=== PATIENT | male | born 1980 | race Caucasian/White ===

== ENCOUNTER 2018-10-21 19:24 | Emergency (ER) | payer OTHER ==
[2018-10-21] MEDS ORDERED: Morphine 4 MG/ML VIAL ONE (20:17)
[2018-10-21 20:28] LABS: #Basophils 0.1 thou/uL (0.0-0.2); #Eosinphils 0.3 thou/uL (0.0-0.7); #Lymphocytes 2.7 thou/uL (1.20-3.40); #Neutrophils 6.7 thou/uL (1.40-6.50); %Basophils 0.9 % (0.0-1.0); %Eosinophils 3.2 % (0.0-10.0); %Lymphocytes 24.9 % (21.0-51.0); %Monocytes 8.9 % (0.0-10.0); %Neutrophils 62.2 % (42.0-75.0); Bilirubin Negative (Negative); Blood, Urine Negative (Negative); Clarity Clear (Clear); Glucose, Urine (Dipstick) Negative (Negative); Hemoglobin 14.5 g/dL (14.0-18.0); Leukocyte Negative (Negative); Mean Corpuscular HGB CONC 34.4 g/dL (32.0-36.0); Mean Corpuscular Volume 84.5 fL (78.0-98.0); Mean Platelet Volume 7.9 fL (7.4-10.4); Nitrite Negative (Negative); Platelet Count 322 thou/uL (130-400); Protein, Urine (Dipstick) Negative (Neg-Trace); Red Blood Cell (RBC) Count 4.98 mill/uL (4.70-6.10); Specific Gravity, Urine 1.015 (1.005-1.030); Urobilinogen 0.2 mg/dL (0.2-1.0); White Blood Cell (WBC) Count 10.8 thou/uL (4.8-10.8)
[2018-10-21 20:42] LABS: ALT (SGPT) 15 U/L (8-55); AST (SGOT) 17 U/L (5-34); Albumin 4.3 g/dL (3.5-5.0); Alkaline Phosphatase 77 U/L (40-150); Anion Gap 14 mmol/L (10-20); BUN (Urea Nitrogen) 9 mg/dL (8.9-20.6); Bilirubin, Total 0.5 mg/dL (0.2-1.2); Calc. Creatinine Clearance 0 mL/min (70-130); Calcium 9.7 mg/dL (7.8-10.44); Carbon Dioxide 27 mmol/L (22-29); Chloride 101 mmol/L (98-107); Estimated GFR-MDRD 82; Glucose 86 mg/dL (70-105); Lipase 30 U/L (8-78); Potassium 3.9 mmol/L (3.5-5.1); Protein, Total 7.3 g/dL (6.0-8.3); Sodium 138 mmol/L (136-145)
[2018-10-21] MEDS ORDERED: Ketorolac Tromethamine 30 MG/ML VIAL ONE (21:10)
== END 2018-10-21 21:27 | disposition short-term general hospital (02) ==
LOC: BURERS 19:24
DX: R10.11 Right upper quadrant pain (principal); F17.210 Nicotine dependence, cigarettes, uncomplicated
CPT/HCPCS: 80053; 81003; 83690; 85025; 96361; 96374; 96375; J1885; J2270